=== PATIENT | male | born 1980 | race Two or more races ===

== ENCOUNTER 2022-01-11 09:12 | Outpatient (CLI) | payer OTHER ==
[~2022-01-11 09:12] MED LIST: ZANTAC150 M2 PO
== END 2022-01-11 09:18 | disposition home or self-care (01) ==
LOC: LAB 09:12
DX: E03.8 Other specified hypothyroidism (principal); E11.9 Type 2 diabetes mellitus without complications; E78.2 Mixed hyperlipidemia; E55.9 Vitamin D deficiency, unspecified; D50.9 Iron deficiency anemia, unspecified; R30.0 Dysuria; E66.9 Obesity, unspecified